=== PATIENT | male | born 1970 | race Two or more races ===

== ENCOUNTER 2018-12-20 16:12 | Emergency (ER) | payer SELFPAY ==
[~2018-12-20] VITALS: Ht 167.6 cm; Wt 55.0 kg
[2018-12-20 16:16] VITALS: BP 134/82
[2018-12-20] MEDS ORDERED: LEVETIRACETAM 500MG PREMIX 100 ML IV ONE (16:45)
[2018-12-20 17:19] LABS: BASOPHILS % 0.3 % (0.0-2.0); EOSINOPHILS % 0.2 % (0.0-5.0); HEMATOCRIT. 35.3 % (42.0-52.0); HEMOGLOBIN. 12.2 g/dL (14.0-18.0); LYMPHOCYTES % 21.5 % (20.0-50.0); MEAN CORPUSCULAR HEMOGLOBIN 33.6 pg (28.0-32.0); MEAN CORPUSCULAR VOLUME 97.1 fL (80.0-94.0); MEAN PLATELET VOLUME 6.5 fl (7.4-10.4); MONOCYTES % 9.2 % (2.0-8.0); NEUTROPHILS % 68.8 % (40.0-76.0); PLATELET 306 x1000/uL (130-400); RED BLOOD CELL COUNT 3.63 mill/uL (4.7-6.1); RED CELL DISTRIBUTION WIDTH 13.5 % (11.6-14.6)
[2018-12-20 17:33] LABS: CHLORIDE 92 mEq/L (98-107)
[2018-12-20 17:46] LABS: ETHANOL BLOOD 302 mg/dL
[2018-12-20] MEDS ORDERED: CHLORDIAZEPOXIDE 25MG CAPSULE PO ONE (19:15)
[2018-12-20] MEDS ORDERED: LEVETIRACETAM 500MG TABLET PO ONE (19:15)
== END 2018-12-20 20:55 | disposition home or self-care (01) ==
LOC: ER 16:12
DX: G40.909 Epilepsy, unspecified, not intractable, without status epilepticus (principal); T51.0X1A Toxic effect of ethanol, accidental (unintentional), initial encounter; R42 Dizziness and giddiness; F10.129 Alcohol abuse with intoxication, unspecified; Y90.8 Blood alcohol level of 240 mg/100 ml or more; Y92.89 Other specified places as the place of occurrence of the external cause
CPT/HCPCS: 36415; 71045; 80320; 99284; G0480